=== PATIENT | male | born 1960 | race Caucasian/White ===

== ENCOUNTER 2022-03-15 09:16 | Outpatient (CLI) | payer MEDICARE, MEDICAID, SELFPAY ==
--- NOTE | 2022-03-15 | XR_ITS ---
WS: [id number] Exam: XR abdomen min 2V [id number] Date/Time of Exam: 03/15/2022 12:00 AM Reason For Exam: ABDOMINAL PAIN X 1 DAY No bowel obstruction or pneumoperitoneum. No sign of organ enlargement. Bony structures are intact. M ild dextroscoliosis of the lumbar spine. XR/XR abdomen min 2V [id number] IMPRESSION: 1. No acute abdominal finding.
== END 2022-03-15 09:17 | disposition home or self-care (01) ==
LOC: RADOUTREAD 03-16 09:21
PROVIDERS: PCP Family Medicine; Visit Provider Nurse Practitioner
DX: R10.9 Unspecified abdominal pain (principal)
CPT/HCPCS: 74019